=== PATIENT | female | born 1970 | race Caucasian/White ===

== ENCOUNTER → 2020-08-26 07:48 | Outpatient (CLI) | payer SELFPAY ==
--- NOTE | 2020-08-26 07:49 | CT_ITS ---
PROCEDURE: CT HEART W CALCIUM SCORE CLINICAL HISTORY: chest pain COMPARISON: No exams were available for comparison TECHNIQUE: Axial images obtained with sagittal and coronal reformats. All CT scans at the facility use one or more dose reduction, viz: automated exposure control, ma/kV adjustment per patient size (including targeted exams where dose is matched to indication, i.e. head), or iterative reconstruction technique. FINDINGS: Coronary artery calcium score is 0. No identifiable calcific atherosclerotic plaque with very low cardiovascular disease risk. There is mild pericardial thickening inferiorly. There is a small hiatal hernia. There has been a prior gastric sleeve surgery. Nonspecific 4 mm nodules present in the right middle lobe. Scattered areas of scarring or atelectatic changes are present in the lingula and left upper lobe IMPRESSION: No identifiable calcific atherosclerotic plaque with very low cardiovascular disease risk Dictated by: Collin Pelayo MD 08/27/2020 16:26 Collin Pelayo MD in [place] 08/27/2020 16:26
--- NOTE | 2020-08-26 09:14 | CA_ITS ---
APPROVED REPORT Exam: Exercise Treadmill Technologist: Josy Najera, Ht: 5 ft 3 in Wt: 226 lbs BSA: 2.04 m2 HR: 76 bpm BP: 144/90 mmHg Medical History Medications: Aspirin,,,,, Metformin,,,,, Losartan,,,,, Buspirone,,,,, Lasix,,,,, GlYBURIDE,,,,, Lipitor,,,,, Coreg,,,,, Potassium Chloride ER,,,,, Viibryd,,,,, Stress Test Details Test: Garrett HR Resting HR: 79 bpm Max Heart Rate (APMHR): 169.096901 bpm Max HR Achieved: 149 bpm Target HR (85% APMHR): 143.243180 bpm % of APMHR: 88.17 Recovery HR: 88 bpm BP Resting BP: 149/95 mmHg Max BP: 204/84 mmHg Recovery BP: 152.0/80.0 mmHg ECG Resting ECG: NSR, low voltage QRS Clinical Exercise duration: 06:01 min Highest Stage Achieved: Exercise capacity: 7.0 METs Stress ECG Conclusion Exercised 6:00 on Garrett Protocol Max HR: 149 % of PM: 88% Max BP: 204/84 MET's: 7.0 Test Stopped due to: SOA Symptoms: No CP Arrhythmias/Ectopy: None ST-T Changes: within normal ST response to exercise. Conclusion: Normal GXT. GXT only (no images). Electronically signed by : Uriel Poole, 08/29/2020 09:26:05
== END ==
PROVIDERS: PCP Nurse Practitioner Family; Visit Provider Internal Medicine
DX: E11.9 Type 2 diabetes mellitus without complications (principal); R00.2 Palpitations; R07.9 Chest pain, unspecified; Z13.6 Encounter for screening for cardiovascular disorders; Z79.84 Long term (current) use of oral hypoglycemic drugs
CPT/HCPCS: 75571; 93017; 93306

== ENCOUNTER → 2020-08-26 08:00 | Outpatient (CLI) | payer OTHER, SELFPAY | PROVIDERS: PCP Nurse Practitioner Family; Visit Provider Internal Medicine | DX: R07.9 Chest pain, unspecified (principal); R00.2 Palpitations; E11.9 Type 2 diabetes mellitus without complications; Z79.84 Long term (current) use of oral hypoglycemic drugs; Z82.49 Family history of ischemic heart disease and other diseases of the circulatory system | CPT/HCPCS: 93017; 93306 ==